=== PATIENT | male | born 1965 | race Caucasian/White ===

== ENCOUNTER 2018-03-27 13:12 | Emergency (ER) | payer OTHER ==
[~2018-03-27] VITALS: Ht 180.3 cm; Wt 108.9 kg
--- NOTE | ~2018-03-27 | EKG ---
[place] [address] ELECTROCARDIOGRAM REPORT Name: ZOHRA VITAL Room: [facility]#: [id number] Admission: 03/27/18 Attend Phys: Discharge: 03/27/18 Date of : 63 Report #: [id number] THIS REPORT FOR: //name// ED Test Date: 2018-03-27 Test Time: 14:09:38 Pat Name: OSWALDO VITAL Department: Room: Gender: M Credit Risk Officer: LEXI : 1965 Requested By: Bruce Ward Order Number: [id number] MD: Measurements Intervals [place] Rate: 43 P: 58 WV: 169 QRS: 20 QRSD: 99 T: 25 QT: 530 QTc: 449 Interpretive Statements Sinus bradycardia Abnormal R-wave progression, early transition Baseline wander in lead(s) V1,V2,V3 No previous ECG available for comparison [email or web address] By: [id number] Epiphany Epiphany, /EPI
[2018-03-27] MEDS ORDERED: COZAAR 25 MG TA25 M1 PO (13:25)
[2018-03-27] MEDS ORDERED: NORVASC5 MG PO (13:25)
[2018-03-27] MEDS ORDERED: TOPROL XL100 MG PO (13:25)
[2018-03-27 14:00] LABS: ABSOLUTE EOSINOPHILS 0.2 thou/uL (0.0-0.7); ABSOLUTE LYMPHOCYTES 1.7 thou/uL (0.8-5.3); ABSOLUTE MONOCYTES 0.7 thou/uL (0.0-1.2); ABSOLUTE NEUTROPHILS 6.1 thou/uL (1.6-8.1); BASOPHILS 0.4 %; EOSINOPHILS 2.2 %; HEMATOCRIT 46.1 % (42.0-52.0); LYMPHOCYTES 19.7 %; MCH 31.3 pg (26.0-34.0); MCHC 34.7 g/dL (28.0-37.0); MCV 90.4 fL (80.0-100.0); MONOCYTES 8.2 %; MPV 8.5 fl. (7.2-11.1); NUCLEATED RBCS 0 /100WBC; PLATELET COUNT* 155 thou/uL (150-400); POLYS 69.5 %; RDW-CV 13.2 % (10.5-14.5); WBC 8.7 thou/uL (4.0-11.0)
[2018-03-27 14:24] LABS: CALCIUM 8.7 mg/dL (8.5-10.1); CREATININE 1.2 mg/dL (0.6-1.3); POTASSIUM 3.5 mmol/L (3.5-5.1)
[2018-03-27 14:28] LABS: ALBUMIN 3.7 g/dL (3.4-5.0); TOTAL BILIRUBIN 0.6 mg/dL (<0.1-1.0); TOTAL PROTEIN 7.2 g/dL (6.4-8.2)
[2018-03-27 15:31] LABS: URINE BILIRUBIN NEGATIVE (Negative); URINE BLOOD 1+ (Negative); URINE CLARITY CLEAR; URINE COLOR YELLOW; URINE GLUCOSE-RANDOM NEGATIVE (Negative); URINE KETONES 1+ (Negative); URINE LEUKOCYTES-REFLEX NEGATIVE (Negative); URINE NITRITE-REFLEX NEGATIVE (Negative); URINE PROTEIN NEGATIVE (Negative); URINE UROBILINOGEN 0.2 E.U./dl (0.2-1.0)
[2018-03-27 15:41] LABS: BACTERIA-REFLEX None Seen /HPF (None Seen); CASTS None Seen /LPF (None Seen); CRYSTALS None Seen /LPF (None Seen); SQUAMOUS 0-3 Few /LPF (0-3); URINE RBC 0-2 Rare /HPF (0-2); URINE WBC-REFLEX None Seen /HPF (0-5)
[2018-03-27] MEDS ORDERED: BENTYL 20 MG TA20 M1 PO (15:43)
[2018-03-27 15:55] VITALS: BP 133/73
== END 2018-03-27 15:56 | disposition home or self-care (01) ==
LOC: M.ERS 13:12
PROVIDERS: Nurse Practitioner Family
DX: T62.91XA Toxic effect of unspecified noxious substance eaten as food, accidental (unintentional), initial encounter (principal); I10 Essential (primary) hypertension; Z88.1 Allergy status to other antibiotic agents; Z88.0 Allergy status to penicillin; Y92.89 Other specified places as the place of occurrence of the external cause